=== PATIENT | male | born 1985 | race Caucasian/White ===

== ENCOUNTER 2019-04-12 09:17 | Inpatient (IN) | payer BC, MEDICAID ==
[~2019-04-12] VITALS: Ht 190.5 cm; Wt 79.4 kg
[2019-04-12 09:19] VITALS: BP_SYST 107
[2019-04-12 10:24] LABS: BASOPHILS % (AUTO) 0.5 % (0.0-2.0); LYMPHOCYTES # (AUTO) 1.1 K/uL (1.0-5.5); LYMPHOCYTES % (AUTO) 12.3 % (20.5-51.5); MEAN CORPUSCULAR HEMOGLOBIN 21 pg (27-31); MEAN CORPUSCULAR HGB CONC 35 % (32-36); MEAN CORPUSCULAR VOLUME 61 fL (79.0-98.0); MONOCYTES # (AUTO) 0.2 K/uL (0.0-1.0); MONOCYTES % (AUTO) 2.1 % (1.7-9.3); NEUTROPHILS # (AUTO) 7.6 K/uL (1.8-7.7); NEUTROPHILS % (AUTO) 85.1 % (40.0-70.0); PLATELET COUNT (AUTO) 339 K/uL (130-430); RED BLOOD CELL COUNT(AUTO) 3.27 MIL/uL (4.2-6.2); RED CELL DISTRIBUTION WIDTH 20.2 % (9.0-15.0); WHITE BLOOD COUNT (AUTO) 8.9 K/uL (4.8-10.8)
[2019-04-12 10:26] LABS: BILIRUBIN,URINE NEGATIVE (NEGATIVE); BLOOD, URINE 3+ (NEGATIVE); CLARITY/URINE CLEAR (CLEAR); COLOR,URINE YELLOW (YELLOW); GLUCOSE,URINE NEGATIVE (NEGATIVE); KETONES,URINE NEGATIVE (NEGATIVE); LEUKOCYTE ESTERASE ,URINE NEGATIVE (NEGATIVE); NITRITE, URINE NEGATIVE (NEGATIVE); PH,URINE 5.5 (5.0-8.0); PROTEIN URINE 2+ (NEGATIVE); UROBILINOGEN,URINE 0.2 (0.2-1.0)
[2019-04-12 10:33] LABS: HEMOGLOBIN 6.9 g/dL (14.0-18.0)
[2019-04-12 10:50] LABS: ANION GAP 28 (5-15); CALCIUM 8.6 mg/dL (8.4-11.0); GLUCOSE 119 mg/dL (70-99); POTASSIUM 3.9 mmol/L (3.5-5.1)
[2019-04-12 10:50] LABS: BACTERIA,URINE FEW /HPF (None Seen); MUCUS,URINE 1+ /LPF (None Seen)
[2019-04-12 10:51] LABS: URINE AMORPHOUS URATE 1+ /HPF (None Seen)
[2019-04-12 10:55] LABS: BARBITURATE, URINE NEGATIVE (NEG <=200); BENZODIAZEPINE, URINE NEGATIVE (NEG <=150); CANNABINOID, URINE NEGATIVE (NEG <=50); COCAINE, URINE NEGATIVE (NEG <=150); METHAMPHETAMINES SCREEN,URINE NEGATIVE (NEG <=500); OPIATE, URINE NEGATIVE (NEG <=100); PHENCYCLIDINE SCREEN,URINE NEGATIVE (NEG <=25); UR TRICYCLIC ANTIDEPRESSANTS NEGATIVE (NEG <=300); URINE AMPHETAMINE NEGATIVE (NEG <=500); URINE METHADONE NEGATIVE (NEG <=200); URINE OXYCODONE SCREEN NEGATIVE (NEG <=100); URINE PROPOXYPHENE SCREEN NEGATIVE (NEG <=300)
[2019-04-12 11:02] LABS: ALANINE AMINOTRANSFERASE 157 U/L (12-78); ALBUMIN 3.3 g/dL (3.4-4.8); ASPARTATE AMINOTRANSFERASE 344 U/L (10-37); TOTAL BILIRUBIN 0.7 mg/dL (0.0-1.0)
[2019-04-12 11:22] LABS: ACETAMINOPHEN < 1 ug/mL (1-30); ALCOHOL, BLOOD < 3 mg/dL (<10); GFR AFRICAN AMERICAN 4 mL/min (>90)
[2019-04-12 11:25] LABS: CHLORIDE 52 mmol/L (98-107); CREATININE 16.54 mg/dL (0.55-1.30); SODIUM SERUM 107 mmol/L (136-145)
[2019-04-12 11:36] LABS: UREA NITROGEN, BLOOD 225 mg/dL (8-21)
[2019-04-12] MEDS ORDERED: PANTOPRAZOLE SODIUM 80 MG in NS 100 ML IV ONE (11:45)
[2019-04-12] MEDS ORDERED: PANTOPRAZOLE SODIUM 40 MG in NS 50 ML IV ONE (11:45)
[2019-04-12 11:48] LABS: INR 1.1 (0.80-1.20); PROTHROMBIN TIME 11.5 SECS (9.5-12.5)
[2019-04-12] MEDS ORDERED: PANTOPRAZOLE SODIUM 40 MG/VIAL (PROTONIX) ONE (12:12)
[2019-04-12 12:31] LABS: CKMB RELATIVE INDEX 4.8 (0.0-2.9); CREATINE KINASE MB 436.6 ng/mL (0-3.6)
[2019-04-12] MEDS ORDERED: D5NS 1,000 ML IV SCH (12:36)
[2019-04-12] MEDS ORDERED: MORPHINE 2 MG/ML INJ. SYRINGE IVP PRN ×2 (13:15)
[2019-04-12] MEDS ORDERED: DOCUSATE SODIUM 100 MG CAPSULE PO PRN (13:15)
[2019-04-12] MEDS ORDERED: MAGNESIUM SULFATE 50 ML IV PRN (13:15)
[2019-04-12] MEDS ORDERED: ACETAMINOPHEN 325 MG TABLET PO PRN (13:15)
[2019-04-12] MEDS ORDERED: MUPIROCIN 2% TOPICAL OINTMENT 22 GM NS PRN (13:15)
[2019-04-12] MEDS ORDERED: ONDANSETRON HCL 4 MG/2 ML VIAL IVP PRN (13:15)
[2019-04-12] MEDS ORDERED: POTASSIUM CHLORIDE 20 MEQ TAB.PRT.SR PO PRN (13:15)
[2019-04-12] MEDS: cefTRIAXone 1 GM in D5W 50 ML IV SCH (13:23)
[2019-04-12] MEDS ORDERED: cefTRIAXone 1 GM VIAL ONE (13:33)
[2019-04-12 15:15] LABS: BASOPHILS % (AUTO) 0.2 % (0.0-2.0); LYMPHOCYTES # (AUTO) 0.5 K/uL (1.0-5.5); LYMPHOCYTES % (AUTO) 4.5 % (20.5-51.5); MEAN CORPUSCULAR HEMOGLOBIN 22 pg (27-31); MEAN CORPUSCULAR HGB CONC 34 % (32-36); MEAN CORPUSCULAR VOLUME 65 fL (79.0-98.0); MONOCYTES # (AUTO) 0.4 K/uL (0.0-1.0); MONOCYTES % (AUTO) 4.2 % (1.7-9.3); NEUTROPHILS # (AUTO) 9.2 K/uL (1.8-7.7); NEUTROPHILS % (AUTO) 91.1 % (40.0-70.0); PLATELET COUNT (AUTO) 263 K/uL (130-430); RED BLOOD CELL COUNT(AUTO) 3.16 MIL/uL (4.2-6.2); RED CELL DISTRIBUTION WIDTH 24.2 % (9.0-15.0); WHITE BLOOD COUNT (AUTO) 10.1 K/uL (4.8-10.8)
[2019-04-12 15:37] LABS: CALCIUM 8.1 mg/dL (8.4-11.0); POTASSIUM 3.4 mmol/L (3.5-5.1); TOTAL BILIRUBIN 0.6 mg/dL (0.0-1.0)
[2019-04-12 15:40] LABS: HEMATOCRIT 20.6 % (36-54)
[2019-04-12 15:47] LABS: TOTAL IRON BIND. CAPACITY 366 ug/dL (250-450)
[2019-04-12 15:56] LABS: CREATININE 15.46 mg/dL (0.55-1.30)
[2019-04-12 18:36] LABS: BASOPHILS % (AUTO) 0.2 % (0.0-2.0); EOSINOPHILS % (AUTO) 0.1 % (0.0-4.0); HEMATOCRIT 25.3 % (36-54); LYMPHOCYTES # (AUTO) 0.5 K/uL (1.0-5.5); LYMPHOCYTES % (AUTO) 4.5 % (20.5-51.5); MEAN CORPUSCULAR HEMOGLOBIN 25 pg (27-31); MEAN CORPUSCULAR HGB CONC 36 % (32-36); MEAN CORPUSCULAR VOLUME 69 fL (79.0-98.0); MONOCYTES # (AUTO) 0.4 K/uL (0.0-1.0); MONOCYTES % (AUTO) 3.5 % (1.7-9.3); NEUTROPHILS # (AUTO) 9.6 K/uL (1.8-7.7); NEUTROPHILS % (AUTO) 91.7 % (40.0-70.0); PLATELET COUNT (AUTO) 246 K/uL (130-430); RED BLOOD CELL COUNT(AUTO) 3.65 MIL/uL (4.2-6.2); WHITE BLOOD COUNT (AUTO) 10.5 K/uL (4.8-10.8)
[2019-04-12 18:42] LABS: RED CELL DISTRIBUTION WIDTH 28.4 % (9.0-15.0)
[2019-04-12] MEDS ORDERED: HEPARIN SODIUM,PORCINE 5000 UNITS/ML VIAL SUBCUT SCH (21:00)
[2019-04-12 22:18] LABS: CALCIUM 8.7 mg/dL (8.4-11.0)
[2019-04-12 23:02] LABS: POTASSIUM 2.7 mmol/L (3.5-5.1)
[2019-04-12 23:06] LABS: CREATININE 15.33 mg/dL (0.55-1.30)
[2019-04-12] MEDS ORDERED: POTASSIUM CHLORIDE 20 MEQ TAB.PRT.SR PO SCH (23:30)
[2019-04-12] MEDS: LORazepam 2 MG/ML VIAL IVP PRN (23:38)
[2019-04-13] VITALS (17 sets, daily range): BP systolic 108–143
[2019-04-13] MEDS ORDERED: POTASSIUM CHLORIDE 40 MEQ, LIDOCAINE JECT 2% PF 100 MG 50 MG in NS 250 ML IV ONE (06:30)
[2019-04-13 07:37] LABS: BASOPHILS % (AUTO) 0.2 % (0.0-2.0); EOSINOPHILS # (AUTO) 0.1 K/uL (0.0-0.4); EOSINOPHILS % (AUTO) 0.7 % (0.0-4.0); HEMATOCRIT 26.1 % (36-54); HEMOGLOBIN 9.1 g/dL (14.0-18.0); LYMPHOCYTES # (AUTO) 0.4 K/uL (1.0-5.5); LYMPHOCYTES % (AUTO) 3.6 % (20.5-51.5); MEAN CORPUSCULAR HEMOGLOBIN 24 pg (27-31); MEAN CORPUSCULAR HGB CONC 35 % (32-36); MEAN CORPUSCULAR VOLUME 70 fL (79.0-98.0); MONOCYTES # (AUTO) 0.3 K/uL (0.0-1.0); MONOCYTES % (AUTO) 2.7 % (1.7-9.3); NEUTROPHILS # (AUTO) 10.4 K/uL (1.8-7.7); NEUTROPHILS % (AUTO) 92.8 % (40.0-70.0); PLATELET COUNT (AUTO) 278 K/uL (130-430); RED BLOOD CELL COUNT(AUTO) 3.72 MIL/uL (4.2-6.2); RED CELL DISTRIBUTION WIDTH 26.9 % (9.0-15.0); WHITE BLOOD COUNT (AUTO) 11.2 K/uL (4.8-10.8)
[2019-04-13 08:13] LABS: BILIRUBIN,DIRECT 0.2 mg/dL (0.0-0.3); CALCIUM 9.2 mg/dL (8.4-11.0); TOTAL BILIRUBIN 0.6 mg/dL (0.0-1.0)
[2019-04-13] MEDS ORDERED: NACL 0.9% 1,000 ML IV ONE ×2 (08:15→08:30)
[2019-04-13] MEDS ORDERED: NACL 0.9% 1,000 ML IV SCH (08:15)
[2019-04-13 08:25] LABS: POTASSIUM 2.9 mmol/L (3.5-5.1)
[2019-04-13 08:26] LABS: CREATININE 15.27 mg/dL (0.55-1.30)
[2019-04-13 08:35] LABS: AMYLASE 163 U/L (0-100); LIPASE 1282 U/L (73-393)
[2019-04-13 09:08] LABS: CALCIUM 9.4 mg/dL (8.4-11.0); POTASSIUM 2.9 mmol/L (3.5-5.1)
[2019-04-13 09:09] LABS: CREATININE 15.19 mg/dL (0.55-1.30)
[2019-04-13] MEDS: PANTOPRAZOLE SODIUM 40 MG/VIAL (PROTONIX) IVP SCH (09:20)
[2019-04-13 09:24] LABS: CKMB RELATIVE INDEX 0.6 (0.0-2.9); CREATINE KINASE MB 79.6 ng/mL (0-3.6)
[2019-04-13 12:57] LABS: THYROID STIMULATING HORMONE 3.89 uIu/mL (0.36-3.74)
[2019-04-13 12:58] LABS: POTASSIUM 2.9 mmol/L (3.5-5.1)
[2019-04-13 12:59] LABS: CREATININE 13.74 mg/dL (0.55-1.30)
[2019-04-13] MEDS ORDERED: POTASSIUM CHLORIDE 20 MEQ TAB.PRT.SR PO ONE (13:45)
[2019-04-13] MEDS: 0.45% NACL 1,000 ML IV SCH ×2 (14:34→16:07)
[2019-04-13] MEDS: cefTRIAXone 1 GM in D5W 50 ML IV SCH (16:07)
[2019-04-13 17:08] LABS: CALCIUM 9.1 mg/dL (8.4-11.0)
[2019-04-13 18:13] LABS: CREATININE 13.49 mg/dL (0.55-1.30)
[2019-04-13] MEDS ORDERED: POTASSIUM CHLORIDE 30 MEQ in NS 250 ML IV ONE (20:00)
[2019-04-13] MEDS ORDERED: FLU VACC TS2019(65UP)/MF59C/PF 45 MCG/0.5 ML SYRINGE I.M. PRN (23:15)
[2019-04-13 23:18] LABS: CALCIUM 8.6 mg/dL (8.4-11.0); POTASSIUM 3.3 mmol/L (3.5-5.1)
[2019-04-13 23:21] LABS: CREATININE 12.87 mg/dL (0.55-1.30)
[2019-04-13] MEDS: NACL 0.9% 1,000 ML IV SCH (23:47)
[2019-04-14] VITALS (23 sets, daily range): BP systolic 116–143
[2019-04-14] MEDS ORDERED: FLU VACC QS2019-20 36MOS UP/PF 60 MCG/0.5 ML SYRINGE I.M. PRN (05:30)
[2019-04-14] MEDS: NACL 0.9% 1,000 ML IV SCH ×3 (05:41→21:20)
[2019-04-14 06:42] LABS: INR 1.2 (0.80-1.20); PROTHROMBIN TIME 11.6 SECS (9.5-12.5)
[2019-04-14 07:03] LABS: ALBUMIN 2.2 g/dL (3.4-4.8); CALCIUM 8.6 mg/dL (8.4-11.0); TOTAL BILIRUBIN 0.3 mg/dL (0.0-1.0)
[2019-04-14 07:06] LABS: FOLATE (FOLIC ACID) 13.8 ng/mL (>3.0)
[2019-04-14 08:06] LABS: BASOPHILS % (AUTO) 0.1 % (0.0-2.0); EOSINOPHILS # (AUTO) 0.1 K/uL (0.0-0.4); EOSINOPHILS % (AUTO) 1.1 % (0.0-4.0); HEMATOCRIT 24.4 % (36-54); HEMOGLOBIN 8.4 g/dL (14.0-18.0); LYMPHOCYTES # (AUTO) 0.2 K/uL (1.0-5.5); LYMPHOCYTES % (AUTO) 2.4 % (20.5-51.5); MEAN CORPUSCULAR HEMOGLOBIN 25 pg (27-31); MEAN CORPUSCULAR HGB CONC 34 % (32-36); MEAN CORPUSCULAR VOLUME 72 fL (79.0-98.0); MONOCYTES # (AUTO) 0.2 K/uL (0.0-1.0); MONOCYTES % (AUTO) 2.3 % (1.7-9.3); NEUTROPHILS # (AUTO) 8.8 K/uL (1.8-7.7); NEUTROPHILS % (AUTO) 94.1 % (40.0-70.0); PLATELET COUNT (AUTO) 235 K/uL (130-430); RED CELL DISTRIBUTION WIDTH 26.7 % (9.0-15.0); TOTAL IRON BIND. CAPACITY 265 ug/dL (250-450); WHITE BLOOD COUNT (AUTO) 9.3 K/uL (4.8-10.8)
[2019-04-14 08:20] LABS: POTASSIUM 2.9 mmol/L (3.5-5.1)
[2019-04-14 08:21] LABS: CREATININE 11.85 mg/dL (0.55-1.30)
[2019-04-14] MEDS: PANTOPRAZOLE SODIUM 40 MG/VIAL (PROTONIX) IVP SCH (08:35)
[2019-04-14 10:19] LABS: CALCIUM 8.8 mg/dL (8.4-11.0)
[2019-04-14 10:46] LABS: POTASSIUM 2.8 mmol/L (3.5-5.1)
[2019-04-14 10:47] LABS: CREATININE 11.23 mg/dL (0.55-1.30)
[2019-04-14 11:13] LABS: THYROID STIMULATING HORMONE 2.48 uIu/mL (0.34-4.82)
[2019-04-14] MEDS: cefTRIAXone 1 GM in D5W 50 ML IV SCH (14:10)
[2019-04-14] MEDS: POTASSIUM CHLORIDE 20 MEQ TAB.PRT.SR PO SCH (21:21)
[2019-04-14] MEDS: LORazepam 2 MG/ML VIAL IVP PRN (23:06)
[2019-04-15] VITALS (9 sets, daily range): BP systolic 111–137
[2019-04-15] MEDS: NACL 0.9% 1,000 ML IV SCH ×3 (02:19→16:46)
[2019-04-15] MEDS: LORazepam 2 MG/ML VIAL IVP PRN (03:35)
[2019-04-15 05:58] LABS: BASOPHILS % (AUTO) 0.3 % (0.0-2.0); EOSINOPHILS # (AUTO) 0.1 K/uL (0.0-0.4); EOSINOPHILS % (AUTO) 1.3 % (0.0-4.0); HEMATOCRIT 25.7 % (36-54); HEMOGLOBIN 8.7 g/dL (14.0-18.0); LYMPHOCYTES # (AUTO) 0.3 K/uL (1.0-5.5); LYMPHOCYTES % (AUTO) 2.4 % (20.5-51.5); MEAN CORPUSCULAR HEMOGLOBIN 25 pg (27-31); MEAN CORPUSCULAR HGB CONC 34 % (32-36); MEAN CORPUSCULAR VOLUME 72 fL (79.0-98.0); MONOCYTES # (AUTO) 0.3 K/uL (0.0-1.0); MONOCYTES % (AUTO) 2.7 % (1.7-9.3); NEUTROPHILS # (AUTO) 9.9 K/uL (1.8-7.7); NEUTROPHILS % (AUTO) 93.3 % (40.0-70.0); PLATELET COUNT (AUTO) 301 K/uL (130-430); RED BLOOD CELL COUNT(AUTO) 3.58 MIL/uL (4.2-6.2); RED CELL DISTRIBUTION WIDTH 27.1 % (9.0-15.0); WHITE BLOOD COUNT (AUTO) 10.7 K/uL (4.8-10.8)
[2019-04-15 06:47] LABS: ALBUMIN 2.2 g/dL (3.4-4.8); CALCIUM 9.3 mg/dL (8.4-11.0); TOTAL BILIRUBIN 0.3 mg/dL (0.0-1.0)
[2019-04-15 06:59] LABS: CREATININE 9.96 mg/dL (0.55-1.30)
[2019-04-15 07:22] LABS: CKMB RELATIVE INDEX 1.7 (0.0-2.9); CREATINE KINASE MB 35.2 ng/mL (0-3.6)
[2019-04-15 08:15] LABS: HEPATITIS A AB, IgM Negative (Negative); HEPATITIS B CORE AB, IgM Negative (Negative); HEPATITIS B SURFACE AG Negative (Negative)
[2019-04-15] MEDS: POTASSIUM CHLORIDE 20 MEQ TAB.PRT.SR PO SCH ×2 (09:13→22:31)
[2019-04-15] MEDS: PANTOPRAZOLE SODIUM 40 MG/VIAL (PROTONIX) IVP SCH (09:13)
[2019-04-15] MEDS ORDERED: LORazepam 2 MG/ML VIAL IVP PRN (09:45)
[2019-04-15] MEDS: cefTRIAXone 1 GM in D5W 50 ML IV SCH (13:59)
[2019-04-15 16:07] LABS: ANTI NUCLEAR AB WITH REFLEX Negative (Negative)
[2019-04-16 01:33] VITALS: BP_SYST 140
[2019-04-16 05:35] LABS: BASOPHILS # (AUTO) 0.1 K/uL (0.0-0.2); BASOPHILS % (AUTO) 0.7 % (0.0-2.0); EOSINOPHILS # (AUTO) 0.1 K/uL (0.0-0.4); EOSINOPHILS % (AUTO) 1.4 % (0.0-4.0); HEMATOCRIT 23.4 % (36-54); HEMOGLOBIN 8.2 g/dL (14.0-18.0); LYMPHOCYTES # (AUTO) 0.6 K/uL (1.0-5.5); LYMPHOCYTES % (AUTO) 5.3 % (20.5-51.5); MEAN CORPUSCULAR HEMOGLOBIN 25 pg (27-31); MEAN CORPUSCULAR HGB CONC 35 % (32-36); MEAN CORPUSCULAR VOLUME 72 fL (79.0-98.0); MONOCYTES # (AUTO) 0.3 K/uL (0.0-1.0); MONOCYTES % (AUTO) 3.3 % (1.7-9.3); NEUTROPHILS # (AUTO) 9.4 K/uL (1.8-7.7); NEUTROPHILS % (AUTO) 89.3 % (40.0-70.0); PLATELET COUNT (AUTO) 345 K/uL (130-430); RED BLOOD CELL COUNT(AUTO) 3.27 MIL/uL (4.2-6.2); RED CELL DISTRIBUTION WIDTH 27.2 % (9.0-15.0); WHITE BLOOD COUNT (AUTO) 10.5 K/uL (4.8-10.8)
[2019-04-16 05:49] LABS: CALCIUM 9.4 mg/dL (8.4-11.0); POTASSIUM 3.7 mmol/L (3.5-5.1)
[2019-04-16] MEDS: NACL 0.9% 1,000 ML IV SCH ×2 (06:04→13:21)
[2019-04-16 07:09] LABS: CREATININE 8.66 mg/dL (0.55-1.30)
[2019-04-16 07:33] LABS: CKMB RELATIVE INDEX 3.7 (0.0-2.9); CREATINE KINASE MB 29.9 ng/mL (0-3.6)
[2019-04-16 07:45] VITALS: BP_SYST 118
[2019-04-16] MEDS: POTASSIUM CHLORIDE 20 MEQ TAB.PRT.SR PO SCH (08:51)
[2019-04-16] MEDS: PANTOPRAZOLE SODIUM 40 MG/VIAL (PROTONIX) IVP SCH (08:51)
[2019-04-16 12:40] VITALS: BP_SYST 111
[2019-04-16] MEDS: cefTRIAXone 1 GM in D5W 50 ML IV SCH (13:19)
[2019-04-16 15:49] LABS: CALCIUM 9.7 mg/dL (8.4-11.0); POTASSIUM 4.4 mmol/L (3.5-5.1)
[2019-04-16 15:58] LABS: CREATININE 8.51 mg/dL (0.55-1.30)
[2019-04-16] MEDS ORDERED: TUBERCULIN,PURIF.PROT.DERIV. 0.1 ML SYR ID ONE (16:15)
[2019-04-16 16:50] VITALS: BP_SYST 117
[2019-04-16 20:30] VITALS: BP_SYST 122
[2019-04-17 00:41] VITALS: BP_SYST 121
[2019-04-17] MEDS: NACL 0.9% 1,000 ML IV SCH ×3 (05:57→20:34)
[2019-04-17 07:05] LABS: ALBUMIN 2.1 g/dL (3.4-4.8); CALCIUM 9.9 mg/dL (8.4-11.0); POTASSIUM 4.7 mmol/L (3.5-5.1); TOTAL BILIRUBIN 0.2 mg/dL (0.0-1.0)
[2019-04-17 07:08] LABS: BASOPHILS % (AUTO) 0.3 % (0.0-2.0); EOSINOPHILS # (AUTO) 0.1 K/uL (0.0-0.4); EOSINOPHILS % (AUTO) 1.2 % (0.0-4.0); HEMATOCRIT 23.2 % (36-54); LYMPHOCYTES # (AUTO) 0.6 K/uL (1.0-5.5); LYMPHOCYTES % (AUTO) 5.2 % (20.5-51.5); MEAN CORPUSCULAR HEMOGLOBIN 25 pg (27-31); MEAN CORPUSCULAR HGB CONC 34 % (32-36); MEAN CORPUSCULAR VOLUME 73 fL (79.0-98.0); MONOCYTES # (AUTO) 0.4 K/uL (0.0-1.0); MONOCYTES % (AUTO) 3.6 % (1.7-9.3); NEUTROPHILS # (AUTO) 10.6 K/uL (1.8-7.7); NEUTROPHILS % (AUTO) 89.7 % (40.0-70.0); PLATELET COUNT (AUTO) 415 K/uL (130-430); RED BLOOD CELL COUNT(AUTO) 3.21 MIL/uL (4.2-6.2); RED CELL DISTRIBUTION WIDTH 27.9 % (9.0-15.0); WHITE BLOOD COUNT (AUTO) 11.8 K/uL (4.8-10.8)
[2019-04-17 07:20] LABS: CREATININE 8.14 mg/dL (0.55-1.30)
[2019-04-17 08:00] VITALS: BP_SYST 129
[2019-04-17] MEDS: PANTOPRAZOLE SODIUM 40 MG/VIAL (PROTONIX) IVP SCH (08:51)
[2019-04-17] MEDS: CARVEDILOL 3.125 MG TABLET (COREG) PO SCH ×2 (09:16→20:31)
[2019-04-17 12:51] VITALS: BP_SYST 142
[2019-04-17] MEDS: cefTRIAXone 1 GM in D5W 50 ML IV SCH (12:54)
[2019-04-17 16:53] VITALS: BP_SYST 109
[2019-04-17 20:00] VITALS: BP_SYST 118
[2019-04-18 01:44] VITALS: BP_SYST 114
[2019-04-18 05:22] LABS: HEPATITIS A AB, IgM Negative (Negative); HEPATITIS B CORE AB, IgM Negative (Negative); HEPATITIS B SURFACE AG Negative (Negative)
[2019-04-18] MEDS: NACL 0.9% 1,000 ML IV SCH ×2 (05:52→21:55)
[2019-04-18 08:00] VITALS: BP_SYST 113
[2019-04-18 08:07] LABS: BASOPHILS % (AUTO) 0.3 % (0.0-2.0); EOSINOPHILS # (AUTO) 0.2 K/uL (0.0-0.4); EOSINOPHILS % (AUTO) 1.8 % (0.0-4.0); HEMOGLOBIN 7.4 g/dL (14.0-18.0); LYMPHOCYTES # (AUTO) 0.8 K/uL (1.0-5.5); LYMPHOCYTES % (AUTO) 7.3 % (20.5-51.5); MEAN CORPUSCULAR HEMOGLOBIN 25 pg (27-31); MEAN CORPUSCULAR HGB CONC 34 % (32-36); MEAN CORPUSCULAR VOLUME 73 fL (79.0-98.0); MONOCYTES # (AUTO) 0.6 K/uL (0.0-1.0); MONOCYTES % (AUTO) 4.9 % (1.7-9.3); NEUTROPHILS # (AUTO) 9.7 K/uL (1.8-7.7); NEUTROPHILS % (AUTO) 85.7 % (40.0-70.0); PLATELET COUNT (AUTO) 438 K/uL (130-430); RED BLOOD CELL COUNT(AUTO) 2.96 MIL/uL (4.2-6.2); RED CELL DISTRIBUTION WIDTH 28.2 % (9.0-15.0); WHITE BLOOD COUNT (AUTO) 11.3 K/uL (4.8-10.8)
[2019-04-18 08:19] LABS: ALBUMIN 1.9 g/dL (3.4-4.8); CALCIUM 8.8 mg/dL (8.4-11.0); PHOSPHORUS 4.5 mg/dL (2.7-4.5); POTASSIUM 3.9 mmol/L (3.5-5.1); TOTAL BILIRUBIN 0.3 mg/dL (0.0-1.0)
[2019-04-18 08:24] LABS: HEMATOCRIT 21.7 % (36-54)
[2019-04-18 08:37] LABS: CREATININE 7.56 mg/dL (0.55-1.30)
[2019-04-18] MEDS: PANTOPRAZOLE SODIUM 40 MG/VIAL (PROTONIX) IVP SCH (09:41)
[2019-04-18] MEDS: CARVEDILOL 3.125 MG TABLET (COREG) PO SCH ×2 (09:42→21:54)
[2019-04-18 10:28] LABS: ANTI-SMOOTH MUSCLE AB 5 Units (0-19)
[2019-04-18] MEDS ORDERED: DIPHENHYDRAMINE HCL 12.5 MG/5 ML UDC PO ONE (12:15)
[2019-04-18] MEDS ORDERED: DIPHENHYDRAMINE HCL/ZINC ACET 28.3 GM CREAM.GM. TP PRN (12:15)
[2019-04-18 12:48] VITALS: BP_SYST 106
[2019-04-18] MEDS: cefTRIAXone 1 GM in D5W 50 ML IV SCH (13:57)
[2019-04-18 16:56] VITALS: BP_SYST 104
[2019-04-18 19:00] VITALS: BP_SYST 115
[2019-04-18 20:00] VITALS: BP_SYST 117
[2019-04-19] VITALS: BP_SYST 108
[2019-04-19] MEDS: NACL 0.9% 1,000 ML IV SCH ×3 (04:33→20:54)
[2019-04-19 07:55] LABS: BASOPHILS % (AUTO) 0.3 % (0.0-2.0); EOSINOPHILS # (AUTO) 0.2 K/uL (0.0-0.4); EOSINOPHILS % (AUTO) 1.5 % (0.0-4.0); HEMOGLOBIN 7.7 g/dL (14.0-18.0); LYMPHOCYTES % (AUTO) 9.9 % (20.5-51.5); MEAN CORPUSCULAR HEMOGLOBIN 25 pg (27-31); MEAN CORPUSCULAR HGB CONC 34 % (32-36); MEAN CORPUSCULAR VOLUME 74 fL (79.0-98.0); MONOCYTES # (AUTO) 0.5 K/uL (0.0-1.0); MONOCYTES % (AUTO) 5.3 % (1.7-9.3); NEUTROPHILS # (AUTO) 8.3 K/uL (1.8-7.7); PLATELET COUNT (AUTO) 547 K/uL (130-430); RED BLOOD CELL COUNT(AUTO) 3.12 MIL/uL (4.2-6.2); RED CELL DISTRIBUTION WIDTH 28.7 % (9.0-15.0); WHITE BLOOD COUNT (AUTO) 10.1 K/uL (4.8-10.8)
[2019-04-19 08:14] LABS: CALCIUM 8.8 mg/dL (8.4-11.0); CREATININE 7.19 mg/dL (0.55-1.30); PHOSPHORUS 4.4 mg/dL (2.7-4.5); POTASSIUM 3.6 mmol/L (3.5-5.1); TOTAL BILIRUBIN 0.2 mg/dL (0.0-1.0)
[2019-04-19 08:45] VITALS: BP_SYST 108
[2019-04-19] MEDS: FOLIC ACID 1 MG TABLET PO SCH (09:29)
[2019-04-19] MEDS: THIAMINE HCL 100 MG TABLET PO SCH (09:29)
[2019-04-19] MEDS: CARVEDILOL 3.125 MG TABLET (COREG) PO SCH ×2 (09:29→20:55)
[2019-04-19] MEDS ORDERED: PANTOPRAZOLE SODIUM 40 MG TAB PO ONE (09:45)
[2019-04-19 12:30] VITALS: BP_SYST 110
[2019-04-19 15:56] VITALS: BP_SYST 106
[2019-04-19 19:00] VITALS: BP_SYST 115
[2019-04-19 20:00] VITALS: BP_SYST 115
[2019-04-20 00:20] VITALS: BP_SYST 120
[2019-04-20 06:25] LABS: CALCIUM 8.7 mg/dL (8.4-11.0); CREATININE 6.66 mg/dL (0.55-1.30); PHOSPHORUS 4.4 mg/dL (2.7-4.5); POTASSIUM 3.8 mmol/L (3.5-5.1); TOTAL BILIRUBIN 0.2 mg/dL (0.0-1.0)
[2019-04-20 06:43] LABS: BASOPHILS % (AUTO) 0.4 % (0.0-2.0); EOSINOPHILS # (AUTO) 0.3 K/uL (0.0-0.4); EOSINOPHILS % (AUTO) 2.3 % (0.0-4.0); HEMATOCRIT 22.6 % (36-54); HEMOGLOBIN 7.5 g/dL (14.0-18.0); LYMPHOCYTES # (AUTO) 1.1 K/uL (1.0-5.5); LYMPHOCYTES % (AUTO) 9.7 % (20.5-51.5); MEAN CORPUSCULAR HEMOGLOBIN 25 pg (27-31); MEAN CORPUSCULAR HGB CONC 33 % (32-36); MEAN CORPUSCULAR VOLUME 74 fL (79.0-98.0); MONOCYTES # (AUTO) 0.6 K/uL (0.0-1.0); MONOCYTES % (AUTO) 5.3 % (1.7-9.3); NEUTROPHILS # (AUTO) 9.5 K/uL (1.8-7.7); NEUTROPHILS % (AUTO) 82.3 % (40.0-70.0); PLATELET COUNT (AUTO) 576 K/uL (130-430); RED BLOOD CELL COUNT(AUTO) 3.05 MIL/uL (4.2-6.2); RED CELL DISTRIBUTION WIDTH 28.8 % (9.0-15.0); WHITE BLOOD COUNT (AUTO) 11.5 K/uL (4.8-10.8)
[2019-04-20 08:00] VITALS: BP_SYST 111
[2019-04-20] MEDS: THIAMINE HCL 100 MG TABLET PO SCH (09:06)
[2019-04-20] MEDS: PANTOPRAZOLE SODIUM 40 MG TAB PO SCH (09:07)
[2019-04-20] MEDS: FOLIC ACID 1 MG TABLET PO SCH (09:07)
[2019-04-20] MEDS: CARVEDILOL 3.125 MG TABLET (COREG) PO SCH ×2 (09:09→22:14)
[2019-04-20 12:25] VITALS: BP_SYST 116
[2019-04-20 16:10] VITALS: BP_SYST 121
[2019-04-20 20:00] VITALS: BP_SYST 129
[2019-04-21 00:04] VITALS: BP_SYST 124
[2019-04-21 06:31] LABS: BASOPHILS % (AUTO) 0.3 % (0.0-2.0); EOSINOPHILS # (AUTO) 0.3 K/uL (0.0-0.4); EOSINOPHILS % (AUTO) 3.1 % (0.0-4.0); HEMOGLOBIN 7.2 g/dL (14.0-18.0); LYMPHOCYTES # (AUTO) 1.1 K/uL (1.0-5.5); LYMPHOCYTES % (AUTO) 10.2 % (20.5-51.5); MEAN CORPUSCULAR HEMOGLOBIN 26 pg (27-31); MEAN CORPUSCULAR HGB CONC 34 % (32-36); MEAN CORPUSCULAR VOLUME 75 fL (79.0-98.0); MONOCYTES # (AUTO) 0.8 K/uL (0.0-1.0); MONOCYTES % (AUTO) 7.7 % (1.7-9.3); NEUTROPHILS # (AUTO) 8.2 K/uL (1.8-7.7); NEUTROPHILS % (AUTO) 78.7 % (40.0-70.0); PLATELET COUNT (AUTO) 642 K/uL (130-430); RED BLOOD CELL COUNT(AUTO) 2.82 MIL/uL (4.2-6.2); RED CELL DISTRIBUTION WIDTH 28.8 % (9.0-15.0); WHITE BLOOD COUNT (AUTO) 10.5 K/uL (4.8-10.8)
[2019-04-21 06:52] LABS: CALCIUM 8.3 mg/dL (8.4-11.0); CREATININE 5.98 mg/dL (0.55-1.30); POTASSIUM 3.7 mmol/L (3.5-5.1); TOTAL BILIRUBIN 0.2 mg/dL (0.0-1.0)
[2019-04-21 07:20] LABS: HEMATOCRIT 21.1 % (36-54)
[2019-04-21 08:30] VITALS: BP_SYST 118
[2019-04-21] MEDS: PANTOPRAZOLE SODIUM 40 MG TAB PO SCH (09:09)
[2019-04-21] MEDS: THIAMINE HCL 100 MG TABLET PO SCH (09:09)
[2019-04-21] MEDS: CARVEDILOL 3.125 MG TABLET (COREG) PO SCH ×2 (09:09→21:00)
[2019-04-21] MEDS: FOLIC ACID 1 MG TABLET PO SCH (09:09)
[2019-04-21 12:36] VITALS: BP_SYST 117
[2019-04-21] MEDS: NACL 0.9% 1,000 ML IV SCH ×2 (14:00→17:48)
[2019-04-21 16:30] VITALS: BP_SYST 122; BP_SYST 138
[2019-04-22] VITALS: BP_SYST 123
[2019-04-22 06:26] LABS: CREATININE 5.46 mg/dL (0.55-1.30); POTASSIUM 4.2 mmol/L (3.5-5.1)
[2019-04-22 08:00] VITALS: BP_SYST 149
[2019-04-22] MEDS: FOLIC ACID 1 MG TABLET PO SCH (10:01)
[2019-04-22] MEDS: THIAMINE HCL 100 MG TABLET PO SCH (10:01)
[2019-04-22] MEDS: PANTOPRAZOLE SODIUM 40 MG TAB PO SCH (10:01)
[2019-04-22] MEDS: CARVEDILOL 3.125 MG TABLET (COREG) PO SCH ×2 (10:02→23:10)
[2019-04-22] MEDS: NACL 0.9% 1,000 ML IV SCH (11:36)
[2019-04-22 12:07] VITALS: BP_SYST 122
[2019-04-22 16:39] VITALS: BP_SYST 122
[2019-04-22 19:00] VITALS: BP_SYST 119
[2019-04-22 20:00] VITALS: BP_SYST 119
[2019-04-23 01:58] VITALS: BP_SYST 130
[2019-04-24] MEDS: PANTOPRAZOLE SODIUM 40 MG TAB PO SCH (09:00)
[2019-04-24] MEDS: FOLIC ACID 1 MG TABLET PO SCH (09:00)
[2019-04-24] MEDS: THIAMINE HCL 100 MG TABLET PO SCH (09:00)
[2019-04-25 02:06] VITALS: BP_SYST 127
[2019-04-25] MEDS ORDERED: NORMAL SALINE 5 ML DISP.SYRIN IVF SCH (06:00)
[2019-04-25 07:05] LABS: BASOPHILS # (AUTO) 0.2 K/uL (0.0-0.2); BASOPHILS % (AUTO) 2.1 % (0.0-2.0); EOSINOPHILS % (AUTO) 9.9 % (0.0-4.0); HEMATOCRIT 22.6 % (36-54); HEMOGLOBIN 7.5 g/dL (14.0-18.0); LYMPHOCYTES # (AUTO) 1.7 K/uL (1.0-5.5); LYMPHOCYTES % (AUTO) 17.1 % (20.5-51.5); MEAN CORPUSCULAR HEMOGLOBIN 26 pg (27-31); MEAN CORPUSCULAR HGB CONC 33 % (32-36); MEAN CORPUSCULAR VOLUME 77 fL (79.0-98.0); MONOCYTES # (AUTO) 0.7 K/uL (0.0-1.0); MONOCYTES % (AUTO) 7.2 % (1.7-9.3); NEUTROPHILS # (AUTO) 6.3 K/uL (1.8-7.7); NEUTROPHILS % (AUTO) 63.7 % (40.0-70.0); RED BLOOD CELL COUNT(AUTO) 2.93 MIL/uL (4.2-6.2); RED CELL DISTRIBUTION WIDTH 29.2 % (9.0-15.0); WHITE BLOOD COUNT (AUTO) 9.9 K/uL (4.8-10.8)
[2019-04-25 07:22] LABS: PLATELET COUNT (AUTO) 778 K/uL (130-430)
[2019-04-25 07:52] LABS: CALCIUM 9.2 mg/dL (8.4-11.0); POTASSIUM 3.9 mmol/L (3.5-5.1)
[2019-04-25 07:53] LABS: CREATININE 4.29 mg/dL (0.55-1.30); TOTAL BILIRUBIN 0.2 mg/dL (0.0-1.0)
[2019-04-25 07:54] LABS: ALBUMIN 2.3 g/dL (3.4-4.8)
[2019-04-25 08:00] VITALS: BP_SYST 121
[2019-04-25] MEDS: PANTOPRAZOLE SODIUM 40 MG TAB PO SCH ×2 (09:00→09:35)
[2019-04-25] MEDS: FOLIC ACID 1 MG TABLET PO SCH ×2 (09:00→09:36)
[2019-04-25] MEDS: THIAMINE HCL 100 MG TABLET PO SCH ×2 (09:00→09:35)
[2019-04-25] MEDS: CARVEDILOL 3.125 MG TABLET (COREG) PO SCH (09:37)
[2019-04-25] MEDS: OXYCODONE/ACETAMINOPHEN *10*mg/325 mg TABLET PO PRN (09:37)
[2019-04-25 10:24] LABS: TOTAL IRON BIND. CAPACITY 349 ug/dL (250-450)
[2019-04-25 12:00] VITALS: BP_SYST 119; BP_SYST 129
[2019-04-25 17:29] VITALS: BP_SYST 119
[2019-04-25] MEDS: traZODone HCL 50 MG TABLET (DESYREL) PO SCH (21:00)
[2019-04-26 01:04] VITALS: BP_SYST 123
[2019-04-26 07:30] VITALS: BP_SYST 123
[2019-04-26 08:00] VITALS: BP_SYST 123
[2019-04-26] MEDS: FERROUS SULFATE 325 MG TABLET.DR PO SCH (09:20)
[2019-04-26] MEDS: CARVEDILOL 3.125 MG TABLET (COREG) PO SCH ×2 (09:21→22:58)
[2019-04-26] MEDS: THIAMINE HCL 100 MG TABLET PO SCH (09:32)
[2019-04-26] MEDS: PANTOPRAZOLE SODIUM 40 MG TAB PO SCH (09:32)
[2019-04-26] MEDS: FOLIC ACID 1 MG TABLET PO SCH (09:33)
[2019-04-26 10:02] LABS: HEMOGLOBIN 7.4 g/dL (14.0-18.0); MEAN CORPUSCULAR HEMOGLOBIN 25 pg (27-31); MEAN CORPUSCULAR VOLUME 77 fL (79.0-98.0)
[2019-04-26 10:12] LABS: CALCIUM 8.8 mg/dL (8.4-11.0); CREATININE 3.91 mg/dL (0.55-1.30); POTASSIUM 4.4 mmol/L (3.5-5.1)
[2019-04-26 10:24] LABS: HEMATOCRIT 22.3 % (36-54); MEAN CORPUSCULAR HGB CONC 33 % (32-36); RED BLOOD CELL COUNT(AUTO) 2.91 MIL/uL (4.2-6.2); RED CELL DISTRIBUTION WIDTH 28.9 % (9.0-15.0); WHITE BLOOD COUNT (AUTO) 9.8 K/uL (4.8-10.8)
[2019-04-26 10:40] LABS: PLATELET COUNT (AUTO) 786 K/uL (130-430)
[2019-04-26 11:29] VITALS: BP_SYST 121
[2019-04-26 12:00] VITALS: BP_SYST 121
[2019-04-26 12:14] LABS: FERRITIN 144 ng/mL (30-400)
[2019-04-26 15:44] LABS: BASOPHILS % (MANUAL) 0 % (0-2); EOSINOPHILS % (MANUAL) 11 % (0-7); LYMPHOCYTES % (MANUAL) 15 % (20-46); MONOCYTES % (MANUAL) 7 % (0-11)
[2019-04-26 16:24] VITALS: BP_SYST 119
[2019-04-26] MEDS: traZODone HCL 50 MG TABLET (DESYREL) PO SCH (22:58)
[2019-04-27 01:57] VITALS: BP_SYST 122
[2019-04-27 06:25] LABS: CALCIUM 8.7 mg/dL (8.4-11.0); CREATININE 3.76 mg/dL (0.55-1.30); POTASSIUM 4.5 mmol/L (3.5-5.1)
[2019-04-27 06:44] LABS: BASOPHILS # (AUTO) 0.4 K/uL (0.0-0.2); BASOPHILS % (AUTO) 3.8 % (0.0-2.0); EOSINOPHILS # (AUTO) 1.3 K/uL (0.0-0.4); EOSINOPHILS % (AUTO) 12.4 % (0.0-4.0); HEMATOCRIT 22.3 % (36-54); HEMOGLOBIN 7.3 g/dL (14.0-18.0); LYMPHOCYTES # (AUTO) 2.2 K/uL (1.0-5.5); LYMPHOCYTES % (AUTO) 20.6 % (20.5-51.5); MEAN CORPUSCULAR HEMOGLOBIN 25 pg (27-31); MEAN CORPUSCULAR HGB CONC 33 % (32-36); MEAN CORPUSCULAR VOLUME 77 fL (79.0-98.0); MONOCYTES # (AUTO) 0.6 K/uL (0.0-1.0); MONOCYTES % (AUTO) 5.2 % (1.7-9.3); NEUTROPHILS # (AUTO) 6.2 K/uL (1.8-7.7); PLATELET COUNT (AUTO) 735 K/uL (130-430); RED BLOOD CELL COUNT(AUTO) 2.89 MIL/uL (4.2-6.2); RED CELL DISTRIBUTION WIDTH 29.7 % (9.0-15.0); WHITE BLOOD COUNT (AUTO) 10.7 K/uL (4.8-10.8)
[2019-04-27 08:45] VITALS: BP_SYST 118
[2019-04-27] MEDS: CARVEDILOL 3.125 MG TABLET (COREG) PO SCH ×2 (10:06→22:00)
[2019-04-27] MEDS: THIAMINE HCL 100 MG TABLET PO SCH (10:06)
[2019-04-27] MEDS: FOLIC ACID 1 MG TABLET PO SCH (10:06)
[2019-04-27] MEDS: PANTOPRAZOLE SODIUM 40 MG TAB PO SCH (10:06)
[2019-04-27] MEDS: FERROUS SULFATE 325 MG TABLET.DR PO SCH (10:06)
[2019-04-27 12:11] VITALS: BP_SYST 122
[2019-04-27 16:09] VITALS: BP_SYST 124
[2019-04-27 20:00] VITALS: BP_SYST 131
[2019-04-28 07:21] LABS: BASOPHILS # (AUTO) 0.5 K/uL (0.0-0.2); BASOPHILS % (AUTO) 4.6 % (0.0-2.0); EOSINOPHILS # (AUTO) 1.6 K/uL (0.0-0.4); EOSINOPHILS % (AUTO) 14.2 % (0.0-4.0); HEMATOCRIT 22.2 % (36-54); HEMOGLOBIN 7.3 g/dL (14.0-18.0); LYMPHOCYTES # (AUTO) 2.3 K/uL (1.0-5.5); LYMPHOCYTES % (AUTO) 20.2 % (20.5-51.5); MEAN CORPUSCULAR HEMOGLOBIN 25 pg (27-31); MEAN CORPUSCULAR HGB CONC 33 % (32-36); MEAN CORPUSCULAR VOLUME 77 fL (79.0-98.0); NEUTROPHILS # (AUTO) 5.9 K/uL (1.8-7.7); RED BLOOD CELL COUNT(AUTO) 2.88 MIL/uL (4.2-6.2); RED CELL DISTRIBUTION WIDTH 29.6 % (9.0-15.0); WHITE BLOOD COUNT (AUTO) 11.3 K/uL (4.8-10.8)
[2019-04-28 07:38] LABS: CALCIUM 8.7 mg/dL (8.4-11.0); CREATININE 3.78 mg/dL (0.55-1.30); POTASSIUM 4.4 mmol/L (3.5-5.1)
[2019-04-28 08:00] VITALS: BP_SYST 130
[2019-04-28 08:40] LABS: PLATELET COUNT (AUTO) 806 K/uL (130-430)
[2019-04-28] MEDS: PANTOPRAZOLE SODIUM 40 MG TAB PO SCH (12:01)
[2019-04-28] MEDS: FERROUS SULFATE 325 MG TABLET.DR PO SCH (12:01)
[2019-04-28] MEDS: FOLIC ACID 1 MG TABLET PO SCH (12:01)
[2019-04-28] MEDS: CARVEDILOL 3.125 MG TABLET (COREG) PO SCH ×2 (12:02→20:14)
[2019-04-28] MEDS: THIAMINE HCL 100 MG TABLET PO SCH (12:04)
[2019-04-28 12:13] VITALS: BP_SYST 124
[2019-04-28 16:09] VITALS: BP_SYST 121
[2019-04-28 20:00] VITALS: BP_SYST 125
[2019-04-28] MEDS: traZODone HCL 50 MG TABLET (DESYREL) PO SCH (20:13)
[2019-04-28] MEDS: OXYCODONE/ACETAMINOPHEN *10*mg/325 mg TABLET PO PRN (20:13)
[2019-04-28] MEDS ORDERED: CALCIUM CARBONATE 500 MG/ TAB.CHEW PO PRN (22:45)
[2019-04-29 01:58] VITALS: BP_SYST 119
[2019-04-29] MEDS: OXYCODONE/ACETAMINOPHEN *10*mg/325 mg TABLET PO PRN ×2 (03:36→21:33)
[2019-04-29 06:19] LABS: HEMATOCRIT 22.5 % (36-54); HEMOGLOBIN 7.6 g/dL (14.0-18.0); MEAN CORPUSCULAR HEMOGLOBIN 26 pg (27-31); MEAN CORPUSCULAR HGB CONC 34 % (32-36); MEAN CORPUSCULAR VOLUME 77 fL (79.0-98.0); RED BLOOD CELL COUNT(AUTO) 2.91 MIL/uL (4.2-6.2); RED CELL DISTRIBUTION WIDTH 29.2 % (9.0-15.0); WHITE BLOOD COUNT (AUTO) 12.3 K/uL (4.8-10.8)
[2019-04-29] MEDS ORDERED: MIDAZOLAM HCL 5 MG/5 ML VIAL ONE ×2 (06:32→06:33)
[2019-04-29] MEDS ORDERED: SIMETHICONE 40 MG/0.6 ML ML ONE (06:33)
[2019-04-29] MEDS ORDERED: fentaNYL CITRATE/PF 100 MCG/2 ML AMP ONE (06:33)
[2019-04-29] MEDS ORDERED: DIPHENHYDRAMINE INJ 50 MG/ML VIAL ONE (06:34)
[2019-04-29 06:39] LABS: CREATININE 3.56 mg/dL (0.55-1.30); POTASSIUM 4.6 mmol/L (3.5-5.1)
[2019-04-29 06:52] LABS: PROTHROMBIN TIME 10.5 SECS (9.5-12.5)
[2019-04-29 06:58] LABS: PLATELET COUNT (AUTO) 868 K/uL (130-430)
[2019-04-29 07:04] LABS: ATYPICAL LYMPHOCYTES % 0 % (0-0); BAND % (MANUAL) 2 % (0-6); BASOPHILS % (MANUAL) 0 % (0-2); EOSINOPHILS % (MANUAL) 21 % (0-7); LYMPHOCYTES % (MANUAL) 20 % (20-46); METAMYELOCYTES % 1 % (0-0); MONOCYTES % (MANUAL) 7 % (0-11)
[2019-04-29 08:00] VITALS: BP_SYST 124
[2019-04-29 08:14] LABS: RETICULOCYTE COUNT 1.5 % (0.5-1.5)
[2019-04-29 08:22] LABS: C-REACTIVE PROTEIN QUANT < 0.2 mg/dL (0-0.5); LACTATE DEHYDROGENASE 346 U/L (85-227)
[2019-04-29] MEDS: PANTOPRAZOLE SODIUM 40 MG TAB PO SCH (09:57)
[2019-04-29] MEDS: FOLIC ACID 1 MG TABLET PO SCH (09:57)
[2019-04-29] MEDS: CARVEDILOL 3.125 MG TABLET (COREG) PO SCH ×2 (09:57→21:36)
[2019-04-29] MEDS: FERROUS SULFATE 325 MG TABLET.DR PO SCH (09:57)
[2019-04-29] MEDS: THIAMINE HCL 100 MG TABLET PO SCH (09:59)
[2019-04-29] MEDS: SOD FERRIC GLUC COMPLEX/SUC 125 MG in NS 100 ML IV SCH (10:12)
[2019-04-29 11:47] VITALS: BP_SYST 129
[2019-04-29 16:00] VITALS: BP_SYST 123
[2019-04-29 20:00] VITALS: BP_SYST 133
[2019-04-29] MEDS: traZODone HCL 50 MG TABLET (DESYREL) PO SCH (21:32)
[2019-04-30] MEDS: OXYCODONE/ACETAMINOPHEN *10*mg/325 mg TABLET PO PRN (00:04)
[2019-04-30 01:22] VITALS: BP_SYST 110
[2019-04-30 08:00] VITALS: BP_SYST 137
[2019-04-30] MEDS: SOD FERRIC GLUC COMPLEX/SUC 125 MG in NS 100 ML IV SCH (08:50)
[2019-04-30] MEDS: THIAMINE HCL 100 MG TABLET PO SCH (08:52)
[2019-04-30] MEDS: FOLIC ACID 1 MG TABLET PO SCH (08:52)
[2019-04-30] MEDS: FERROUS SULFATE 325 MG TABLET.DR PO SCH (08:52)
[2019-04-30] MEDS: CARVEDILOL 3.125 MG TABLET (COREG) PO SCH (08:53)
[2019-04-30] MEDS: PANTOPRAZOLE SODIUM 40 MG TAB PO SCH (08:53)
[2019-04-30 09:46] LABS: HEMATOCRIT 22.5 % (36-54); HEMOGLOBIN 7.6 g/dL (14.0-18.0); MEAN CORPUSCULAR HEMOGLOBIN 26 pg (27-31); MEAN CORPUSCULAR HGB CONC 34 % (32-36); MEAN CORPUSCULAR VOLUME 78 fL (79.0-98.0); PLATELET COUNT (AUTO) 744 K/uL (130-430); RED CELL DISTRIBUTION WIDTH 29.4 % (9.0-15.0); WHITE BLOOD COUNT (AUTO) 7.7 K/uL (4.8-10.8)
[2019-04-30 10:07] LABS: CREATININE 3.46 mg/dL (0.55-1.30); POTASSIUM 4.5 mmol/L (3.5-5.1)
[2019-04-30 10:27] LABS: ATYPICAL LYMPHOCYTES % 0 % (0-0); BAND % (MANUAL) 1 % (0-6); BASOPHILS % (MANUAL) 0 % (0-2); EOSINOPHILS % (MANUAL) 15 % (0-7); LYMPHOCYTES % (MANUAL) 18 % (20-46); MONOCYTES % (MANUAL) 6 % (0-11)
[2019-04-30] MEDS ORDERED: ASCO500T20 PO (11:07)
[2019-04-30] MEDS ORDERED: CIPR-172 PO (11:07)
[2019-04-30] MEDS ORDERED: FERR325T22 PO (11:07)
[2019-04-30 12:16] VITALS: BP_SYST 125
[2019-04-30 14:02] VITALS: BP_SYST 94
[2019-04-30] MEDS ORDERED: traZODone HCL 50 MG TABLET (DESYREL) PO SCH (21:00)
[2019-04-30] MEDS ORDERED: CIPROFLOXACIN HCL 500 MG TABLET PO SCH (22:00)
[2019-05-07 18:22] LABS: ALBUMIN 2.1 g/dL (3.4-4.8); CALCIUM 8.4 mg/dL (8.4-11.0); CREATININE 5.51 mg/dL (0.55-1.30); POTASSIUM 3.9 mmol/L (3.5-5.1); TOTAL BILIRUBIN 0.2 mg/dL (0.0-1.0)
[2019-05-15 13:09] LABS: CALCIUM 8.7 mg/dL (8.4-11.0); CREATININE 4.47 mg/dL (0.55-1.30); POTASSIUM 3.7 mmol/L (3.5-5.1)
== END 2019-04-30 16:10 | disposition home or self-care (01) | DRG 70 ==
LOC: SED 09:17 → SIC 12:36 → STU 04-15 18:32 → SMU 04-17 17:16 → STU 04-17 17:20 → SMU 04-19 15:26
PROVIDERS: ADMIT General Practice; ATTEND General Practice
PROC: 30233N1 Transfusion of Nonautologous Red Blood Cells into Peripheral Vein, Percutaneous Approach (ICD-10-PCS; principal; 2019-04-12)
DX: G93.41 Metabolic encephalopathy (principal); I21.A1 Myocardial infarction type 2; S22.41XA Multiple fractures of ribs, right side, initial encounter for closed fracture; N17.0 Acute kidney failure with tubular necrosis; E43 Unspecified severe protein-calorie malnutrition; M62.82 Rhabdomyolysis; E87.1 Hypo-osmolality and hyponatremia; N18.5 Chronic kidney disease, stage 5; K92.2 Gastrointestinal hemorrhage, unspecified; K86.1 Other chronic pancreatitis; E86.0 Dehydration; E87.6 Hypokalemia; D50.9 Iron deficiency anemia, unspecified; D63.1 Anemia in chronic kidney disease; F10.10 Alcohol abuse, uncomplicated; F12.90 Cannabis use, unspecified, uncomplicated; F17.210 Nicotine dependence, cigarettes, uncomplicated; F32.9 Major depressive disorder, single episode, unspecified; F41.1 Generalized anxiety disorder; D47.3 Essential (hemorrhagic) thrombocythemia; Z53.29 Procedure and treatment not carried out because of patient's decision for other reasons; R74.0 Nonspecific elevation of levels of transaminase and lactic acid dehydrogenase [LDH]; W18.39XA Other fall on same level, initial encounter; Y92.230 Patient room in hospital as the place of occurrence of the external cause; Z79.899 Other long term (current) drug therapy; Z91.19 Patient's noncompliance with other medical treatment and regimen; Z91.15 Patient's noncompliance with renal dialysis; Y93.89 Activity, other specified; Y99.8 Other external cause status; Z68.21 Body mass index [BMI] 21.0-21.9, adult
CPT/HCPCS: 36415; 36430; 70450-TC; 70551; 71045; 71100; 76700-TC; 76770; 80048; 80053; 80061; 80074; 80076; 80307; 81000-TC; 82140-TC; 82150-TC; 82550-TC; 82553-TC; 82607; 82728; 82746; 82977-TC; 83036; 83516; 83540-TC; 83550-TC; 83615-TC; 83690-TC; 83735-TC; 83880; 83930-TC; 83935-TC; 84100-TC; 84443-TC; 84484; 85007; 85025; 85027; 85044-TC; 85610-TC; 85651-TC; 85730-TC; 86038; 86140; 86580; 86886; 86900; 86901; 86920; 87040-TC; 87081; 87086; 93005; 93306; 96365; 96375; 97116-GP; 97530-GP; 99291; C9113; G0378; G0480; G0481; G0482; J0696; J1200; J2060; J2250; J2270; J2916; J3010; J3475; J3480; J7030; J7040; J7042; J7050; J7060; P9021